=== PATIENT | female | born 1975 | race Caucasian/White ===

== ENCOUNTER 2019-12-11 19:06 | Emergency (ER) | payer BC ==
[2019-12-11] MEDS ORDERED: Acetaminophen/oxyCODONE 325-5 MG Tab PO ONE (19:27)
[2019-12-11] MEDS ORDERED: Ondansetron 4 MG Tab.DIS PO ONE ×2 (19:27→21:42)
--- NOTE | 2019-12-11 19:33 | EDM.PDOC ---
ED HPI GENERAL MEDICAL PROBLEM - General Chief Complaint: Lower Extremity Injury/Pain Stated Complaint: KICKED IN LEFT LEG BY A COW Time Seen by Provider: 12/11/19 19:16 Source of Information: Reports: Patient, Family () History Limitations: Reports: No Limitations - History of Present Illness INITIAL COMMENTS - FREE TEXT/NARRATIVE: Mrs. hinojosa is a very pleasant 44-year-old woman with a past medical history significant for hypertension, suspected asthma, and depression/anxiety, who states that she was kicked in her proximal left leg by a cow around 18:00. She states that she was between the cow and her calf, when the cow got angry and kicked her. The patient was knocked to the ground, but she states that her only injury is to her left leg, and that she is otherwise uninjured. The patient denies recent fever, chills, cough, dyspnea, chest pain, palpitations, nausea, vomiting, constipation, diarrhea, abdominal pain, urinary symptoms, recent weight gain or weight loss, recent bloody bowel movements or black bowel movements, recent joint aches, headaches, or rashes. She last ate around 14:30. The patient's PCP is HUGH Gaines. Her Soda Jerker is Dr. John Boyle. She received an influenza vaccine this season. Left Leg Pain Score (Numeric/FACES): 10 - Related Data Allergies Allergy/AdvReac Type Severity Reaction Status Date / Time No Known Allergies Allergy Verified 12/11/19 19:23 Past Medical History Cardiovascular History: Reports: Hypertension Respiratory History: Reports: Asthma (suspected, not tested) Psychiatric History: Reports: Anxiety, Depression Endocrine/Metabolic History: Reports: Obesity/BMI 30+ - Past Surgical History HEENT Surgical History: Reports: Adenoidectomy, Oral Surgery (wisdom teeth extraction) Female Surgical History: Reports: Cervical Cryotherapy Social & Family History - Tobacco Use Smoking Status *Q: Former Smoker Years of Tobacco use: 15 Packs/Tins Daily: 0.1 Month/Year Tobacco Last Used: Quit 2017 - Caffeine Use Caffeine Use: Reports: Coffee - Alcohol Use Alcohol Use History: Yes Alcohol Use Frequency: Socially - Recreational Drug Use Recreational Drug Use: Yes Drug Use in Last 12 Months: Yes Recreational Drug Type: Reports: Marijuana/Hashish (last vaped THC 12/08/2019) - Living Situation & Occupation Living situation: Reports: , with Spouse, with Family (2 kids) Occupation: Employed (Coffee shop) Review of Systems - Review of Systems Review Of Systems: Comprehensive ROS is negative, except as noted in HPI. ED EXAM, GENERAL - Physical Exam Exam: See Below Exam Limited By: No Limitations General Appearance: Alert, WD/WN, Mild Distress (appears uncomfortable) Extremities: Other (There is erythema associated with an abrasion that extends from the anterior distal left thigh, across the anterior knee, and down to the proximal anterior left leg. There is some swelling to the proximal left leg, and this is where the majority of her tenderness is, however, there is no obvious bony deformity. Excellent left dorsalis pedis and posterior tibialis pulses, and the patient's left foot is as warm as her right. The patient complains of some tingling and numbness to her left foot.) Course - Vital Signs Last Recorded V/S: Last Vital Signs Temp 36.6 C 12/11/19 19:16 Pulse 87 12/11/19 19:16 Resp 16 12/11/19 19:16 BP 153/101 H 12/11/19 19:16 Pulse Ox 98 12/11/19 19:16 - Orders/Labs/Meds Orders: Active Orders 24 hr Category Date Time Status Knee wo Cont Lt [CT] Stat Exams 12/11/19 20:43 Taken Tibia Fibula Lt [CR] Stat Exams 12/11/19 19:22 Taken DME for Discharge [COMM] Stat Oth 12/11/19 22:43 Ordered Meds: Medications Discontinued Medications Generic Name Dose Route Start Last Admin Trade Name Kassidy PRN Reason Stop Dose Admin Hydromorphone HCl 1 mg 12/11/19 21:42 12/11/19 21:46 Dilaudid IM 12/11/19 21:43 1 mg ONETIME ONE Administration Ibuprofen 600 mg 12/11/19 22:51 12/11/19 22:54 Motrin PO 12/11/19 22:52 600 mg ONETIME ONE Administration Ibuprofen Confirm 12/11/19 22:53 Motrin Administered 12/11/19 22:54 Dose 600 mg .ROUTE .STK-MED ONE Ondansetron HCl 4 mg 12/11/19 19:27 12/11/19 19:31 Zofran Odt PO 12/11/19 19:28 4 mg ONETIME ONE Administration Ondansetron HCl 4 mg 12/11/19 21:42 12/11/19 21:46 Zofran Odt PO 12/11/19 21:43 4 mg ONETIME ONE Administration Oxycodone/Acetaminophen 2 tab 12/11/19 19:27 12/11/19 19:31 Percocet 325-5 Mg PO 12/11/19 19:28 2 tab ONETIME ONE Administration - Re-Assessments/Exams Free Text/Narrative Re-Assessment/Exam: 12/11/19 19:28 As above, the patient was kicked in her proximal left leg, and on examination, there is erythema and some swelling extending from the proximal left leg, across the anterior knee, and up onto the distal left thigh. I have ordered x- rays of her left tib-fib and left knee, and I discussed with the radiology tech that the knee views will include some of the distal femur. In the meantime, the patient preferred some oral analgesics as opposed to an injection , therefore I ordered 2 tablets of Percocet and a Zofran ODT. 12/11/19 20:27 4-view radiographs of the left tib/fib appear to demonstrate a comminuted, minimally displaced lateral tibial plateau fracture. No other fracture or dislocation identified. Formal read per the Radiologist pending. The x-ray results were discussed with the patient and her . Unfortunately, we do not have Orthopedic Surgery restaurant front manager today. I will need to discuss the case with an Orthopedic Surgeon in [place]. The patient prefers at [facility]. X-ray images have been pushed to [facility]. 12/11/19 20:44 [facility] contacted at 20:34. Case discussed with Ayesha at [facility] at 20:39. Case then discussed with Dr. Devlin, Orthopedic Surgeon restaurant front manager, at 20:41. He recommended that we obtain a CT of the patient's left knee with 3D reconstruction, and that we push the images to [facility]. We are then to set the patient with a knee immobilizer and crutches, and the patient is to ice and elevate her left knee. She should then follow-up in the clinic between 9 AM and 10 AM tomorrow morning, NPO. 12/11/19 21:43 Notified by Victor Hugo MARIE that the patient could use some additional pain medication and antinausea medicine. I have ordered Dilaudid 1 mg IM, along with an additional 4 mg Zofran ODT. 12/11/19 22:[address] scan of the patient's left knee has been performed, however, the 3D reconstruction has not yet been performed. The patient, however, does not need to wait for those results. We will push the images to [facility] once they have been compiled. In the meantime, we will fit the patient for a knee immobilizer and crutches. I will discharge her home with [facility] prescriptions for Percocet 5/325 #20 and Zofran 4 mg ODT #10. The patient will be instructed to ice and elevate her left knee as much as possible, remain n.p.o. after 23:00 MST, then show up in Dr. Devlin's clinic between 9 AM and 10 PM WORKERS COMPENSATION ADJUSTER tomorrow. 12/11/19 23:31 CT of the left lower extremity without contrast as read by [facility] as: 1. Schatzker type 6 tibial plateau fracture as detailed above. 2. The longitudinal split component in the lateral tibial plateau demonstrates about 8 mm of articular gap, and there is about 4 mm depression of the medial fragment of the lateral plateau. The CT images will be pushed to [facility] now. Departure - Departure Time of Disposition: 22:48 Disposition: Home, Self-Care 01 Condition: Good Clinical Impression: Closed fracture of left tibial plateau - Discharge Information *PRESCRIPTION DRUG MONITORING PROGRAM REVIEWED*: Not Applicable *COPY OF PRESCRIPTION DRUG MONITORING REPORT IN PATIENT LUIS: Not Applicable Instructions: Tibial Fracture, Adult, [id number] Referrals: Celi Pagan PA-C [Primary Care Provider] - John Boyle MD [Physician] - Maxime Devlin MD [Consulting Physician] - Forms: ED Department Discharge Additional Instructions: You were seen in the emergency room for left leg pain after being kicked in the knee by a cow. Work-up in the ER included x-rays of your left leg, followed by a CT scan of your left knee. The x-rays and CT scan confirmed that you have a tibial plateau fracture. You have been placed into a knee immobilizer, which we recommend that you remain in overnight. Use crutches whenever ambulating. We recommend that you ice and elevate your left knee as much as possible overnight. We recommend that you take [id number] ibuprofen, 3 tablets (600 mg) every 8 hours, with food, [id number]. In addition to ibuprofen, you may take 1 to 2 tablets of Percocet up to every 6 hours, as needed for pain not relieved by ibuprofen. Percocet may cause constipation, so consider taking a stool softener. You may dissolve 1 tablet of the anti-nausea medicine Zofran on your tongue up to every 8 hours, as needed for nausea/vomiting. You are not to eat or drink anything after 11:00 [place] time tonight/midnight Central time. You are to show up at the office of the Orthopedic Surgeon Dr. Maxime Devlin, at the [facility], [address] [place] [address], between 9 AM and 10 AM tomorrow morning, 12/12/2019. If any other problems, please do not hesitate to return to the ER. Sepsis Event Note - Evaluation Sepsis Screening Result: No Definite Risk - Focused Exam Vital Signs: Vital Signs Temp Pulse Resp BP Pulse Ox 12/11/19 19:16 36.6 C 87 16 153/101 H 98 Date Exam was Performed: 12/11/19 Time Exam was Performed: 23:31 - My Orders Last 24 Hours: My Active Orders 12/11/19 19:22 Tibia Fibula Lt [CR] Stat 12/11/19 20:43 Knee wo Cont Lt [CT] Stat 12/11/19 22:43 DME for Discharge [COMM] Stat - Assessment/Plan Last 24 Hours: My Active Orders 12/11/19 19:22 Tibia Fibula Lt [CR] Stat 12/11/19 20:43 Knee wo Cont Lt [CT] Stat 12/11/19 22:43 DME for Discharge [COMM] Stat
[2019-12-11] MEDS ORDERED: HYDROmorphone 1 MG/ML Syringe IM ONE (21:42)
[2019-12-11] MEDS ORDERED: Ibuprofen 600 MG Tab PO ONE (22:51)
[2019-12-11] MEDS ORDERED: Ibuprofen 600 MG Tab ONE (22:53)
--- NOTE | 2019-12-12 06:47 | CR ---
Left tibia and fibula: Two views of the left tibia and fibula were obtained. Proximal tibial fracture is identified. Fracture is comminuted and involves the mid and lateral tibial plateau. Displacement is seen on this study up to 1 cm of the lateral tibial plateau fragment. Proximal fibula appears intact. Other portions of the tibia and fibula appear unremarkable. Mild medial joint space narrowing is seen. Impression: 1. Comminuted proximal tibial fracture with displacement up to 1 cm of the lateral tibial plateau fragment. 2. Degenerative medial joint space narrowing. 3. No additional bony abnormality is seen. Diagnostic code #3 This report was dictated in [place] Standard Time
--- NOTE | 2019-12-12 07:31 | CT ---
CT left knee Technique: Multiple axial sections through the left knee were obtained. Reconstructed coronal and sagittal images were reviewed. Findings: Comminuted proximal tibial fracture is seen. Fracture causes displacement of the articular margin of the lateral tibial plateau by 1.0 cm. Lesser displaced fracture within the mid tibial plateau. Oblique transverse fracture lines are noted through the metaphysis. Distal femur is intact. Patella is intact. Fibular head is intact. Diffuse soft tissue swelling is seen. Joint effusion is seen. Impression: 1. Comminuted intra-articular tibial plateau fracture. Lateral articular margin displaced up to 1.0 cm. 2. Soft tissue swelling and joint effusion. Diagnostic code #3 This report was dictated in [place] Standard Time I agree with preliminary report from [facility], finalized on 12/12/19, 12:20 AM Central Time [facility]
== END 2019-12-11 23:15 | disposition home or self-care (01) ==
LOC: JD.ED 19:06
DX: S82.252A Displaced comminuted fracture of shaft of left tibia, initial encounter for closed fracture (principal); S82.142A Displaced bicondylar fracture of left tibia, initial encounter for closed fracture; I10 Essential (primary) hypertension; J45.909 Unspecified asthma, uncomplicated; E66.9 Obesity, unspecified; Z87.891 Personal history of nicotine dependence; Z68.39 Body mass index [BMI] 39.0-39.9, adult; W55.22XA Struck by cow, initial encounter
CPT/HCPCS: 73590; 73700; 96372; 99284; A9270; J1170; 99283

== ENCOUNTER 2020-01-09 20:31 | Emergency (ER) | payer BC ==
--- NOTE | 2020-01-09 21:51 | EDM.PDOC ---
ED HPI GENERAL MEDICAL PROBLEM - General Chief Complaint: Upper Extremity Injury/Pain Stated Complaint: WRIST INJURY Time Seen by Provider: 01/09/20 20:56 Source of Information: Reports: Patient History Limitations: Reports: No Limitations - History of Present Illness INITIAL COMMENTS - FREE TEXT/NARRATIVE: Patient is a 44-year-old female who presents with pain and swelling to her right wrist. She states she was trying to get in the house and she fell backwards. When she reached back to try to catch her so she hit her wrist on their camper. She recently had surgery for a tibial plateau fracture so she had Percocets at home. She took 1 of these which she states did help her pain. She has no previous injuries to this extremity. She has full feeling and movement of her fingers. Right Wrist Pain Score (Numeric/FACES): 9 - Related Data Allergies Allergy/AdvReac Type Severity Reaction Status Date / Time diphenhydramine Allergy Swelling Verified 01/09/20 20:52 [From Benadryl] Home Meds: Home Meds DULoxetine HCl [Cymbalta] 30 mg PO DAILY 01/09/20 [History] Lisinopril [Zestril] 10 mg PO DAILY 01/09/20 [History] metFORMIN [Glucophage XR] 500 mg PO BID 01/09/20 [History] oxyCODONE HCl/Acetaminophen [Percocet 5-325 mg Tablet] 1 each PO Q6H PRN [History] Past Medical History Cardiovascular History: Reports: Hypertension Respiratory History: Reports: Asthma Psychiatric History: Reports: Anxiety, Depression Endocrine/Metabolic History: Reports: Diabetes, Type II, Obesity/BMI 30+ - Past Surgical History HEENT Surgical History: Reports: Adenoidectomy, Oral Surgery Female Surgical History: Reports: Cervical Cryotherapy Musculoskeletal Surgical History: Reports: ORIF Social & Family History - Tobacco Use Smoking Status *Q: Never Smoker - Caffeine Use Caffeine Use: Reports: Coffee - Recreational Drug Use Recreational Drug Use: No - Living Situation & Occupation Living situation: Reports: , with Spouse, with Family (2 kids) Occupation: Employed (Coffee shop) Review of Systems - Review of Systems Review Of Systems: Comprehensive ROS is negative, except as noted in HPI. ED EXAM, GENERAL - Physical Exam Exam: See Below Exam Limited By: No Limitations General Appearance: Alert, WD/WN, No Apparent Distress Respiratory/Chest: No Respiratory Distress, Lungs Clear, Normal Breath Sounds, No Accessory Muscle Use, Chest Non-Tender Cardiovascular: Normal Peripheral Pulses, Regular Rate, Rhythm, No Edema, No Gallop, No JVD, No Murmur, No Rub Extremities: Other (Generalized swelling to the right wrist. There is an area of increased swelling/deformity over the distal, dorsal radius. CMS is intact distal to the injury.) Neurological: Alert, Oriented, CN II-XII Intact, Normal Cognition, Normal Gait, Normal Reflexes, No Motor/Sensory Deficits Psychiatric: Normal Affect, Normal Mood Course - Vital Signs Last Recorded V/S: Last Vital Signs Temp 97.3 F 01/09/20 20:50 Pulse 97 01/09/20 20:50 Resp 16 01/09/20 20:50 BP 145/102 H 01/09/20 20:50 Pulse Ox 95 01/09/20 20:50 - Orders/Labs/Meds Orders: Active Orders 24 hr Category Date Time Status Wrist Comp Min 3V Rt [CR] Stat Exams 01/09/20 20:56 Taken - Re-Assessments/Exams Free Text/Narrative Re-Assessment/Exam: 01/09/20 21:48 X-ray shows a nondisplaced fracture of the distal radius. A fiberglass short arm splint was applied. Patient has a follow-up appointment tomorrow with Dr. Jeong for her tibial plateau fracture. She will discuss this injury with him then. Discharge instructions as documented. Departure - Departure Time of Disposition: 21:49 Disposition: Home, Self-Care 01 Condition: Fair Clinical Impression: Fracture of radius Qualifiers: Encounter type: initial encounter Radius location: distal Fracture type: closed Fracture morphology: unspecified fracture morphology Laterality: right Qualified Code(s): S52.501A - Unspecified fracture of the lower end of right radius, initial encounter for closed fracture - Discharge Information *PRESCRIPTION DRUG MONITORING PROGRAM REVIEWED*: No *COPY OF PRESCRIPTION DRUG MONITORING REPORT IN PATIENT LUIS: No Instructions: Wrist Fracture Treated With Immobilization, [id number] Referrals: Celi Pagan PA-C [Primary Care Provider] - Manolo Jeong MD [Physician] - Additional Instructions: You were seen in the emergency department today for pain and swelling to your right wrist after hitting it while falling today. X-ray shows there is a nondisplaced fracture of the distal radial head. A splint has been applied to the extremity. Recommend that you ice and elevate as much as possible. You may use Tylenol as needed for pain. Recommend that you follow-up with Dr. Jeong in approximately 1 week. You may discuss the injury with him at your appointment tomorrow as well. Return to the ER as needed. Sepsis Event Note - Evaluation Sepsis Screening Result: No Definite Risk - Focused Exam Vital Signs: Vital Signs Temp Pulse Resp BP Pulse Ox 01/09/20 20:50 97.3 F 97 16 145/102 H 95 Date Exam was Performed: 01/09/20 Time Exam was Performed: 21:45 - My Orders Last 24 Hours: My Active Orders 01/09/20 20:56 Wrist Comp Min 3V Rt [CR] Stat - Assessment/Plan Last 24 Hours: My Active Orders 01/09/20 20:56 Wrist Comp Min 3V Rt [CR] Stat
--- NOTE | 2020-01-10 07:29 | CR ---
Right wrist: 4 views the right wrist were obtained. Comparison: No prior wrist study. Nondisplaced fracture is identified within the distal right wrist involving mostly the metaphysis at the base of the radial styloid process. Articular extension is noted. Diffuse soft tissue swelling is noted. Distal ulna appears intact. Impression: 1. Distal radial fracture as noted above. 2. Soft tissue swelling. Diagnostic code #3 Study was dictated in [facility]T
== END 2020-01-09 22:00 | disposition home or self-care (01) ==
LOC: JD.ED 20:31
DX: S52.501A Unspecified fracture of the lower end of right radius, initial encounter for closed fracture (principal); E11.9 Type 2 diabetes mellitus without complications; F41.9 Anxiety disorder, unspecified; J45.909 Unspecified asthma, uncomplicated; F32.9 Major depressive disorder, single episode, unspecified; Z79.899 Other long term (current) drug therapy; Z88.8 Allergy status to other drugs, medicaments and biological substances; E66.9 Obesity, unspecified; Z79.84 Long term (current) use of oral hypoglycemic drugs; Z68.39 Body mass index [BMI] 39.0-39.9, adult; W18.30XA Fall on same level, unspecified, initial encounter
CPT/HCPCS: 29125; 73110-26-RT; 73110-RT; 99283; 99283-25

== ENCOUNTER 2021-02-19 19:27 | Emergency (ER) | payer BC ==
--- NOTE | 2021-02-19 20:10 | EDM.PDOC ---
ED HPI GENERAL MEDICAL PROBLEM - General Chief Complaint: Allergic Reaction Stated Complaint: ALLERGIC REACTION/HIVES Time Seen by Provider: 02/19/21 19:34 Source of Information: Reports: Patient, Family (Daughter) History Limitations: Reports: No Limitations - History of Present Illness INITIAL COMMENTS - FREE TEXT/NARRATIVE: Mrs. Connell is a pleasant 45-year-old woman who now presents to the ED due to a concern that she is having an allergic reaction. She states that she received a sunburn to the back of her neck, her anterior neck and upper chest, and the entirety of both of her upper extremities, including the shoulders, this past Wednesday and Wednesday, 02/15/2021 and 02/16/2021. She has been applying aloe vera. The sunburned areas then became pruritic around 9:00 this morning, then, around 15:30 to 16:00 this afternoon, she developed a rash to the sunburned areas, where in the sunburned areas appeared to be more erythematous than they had been before. There is no rash outside of the areas where she already has a sunburn, and she has no pruritus other than to the areas of the rash, such as to intertriginous areas. She denies having any other symptoms, such as lip swelling, oropharyngeal swelling, difficulty breathing, wheezing, gastritis, or diarrhea. The patient states that she took some Benadryl and Tylenol, which did not help with her symptoms. The patient states that she had similar symptoms around 1999, after eating some almonds. She states that she subsequently underwent allergy testing, which showed that she is allergic to dust mites, but not to nuts. Here in the ED, the patient is initially found to be slightly tachycardic at 102 bpm, otherwise, she is hemodynamically stable, afebrile, saturating 96% on room air. She does not appear to be in any acute distress. Other than her sunburn, the patient denies having a recent fever, chills, sore throat, ear pain, nasal or sinus congestion, cough, dyspnea, chest pain, palpitations, nausea, vomiting, constipation, diarrhea, abdominal pain, urinary symptoms, recent weight gain or weight loss, recent bloody bowel movements or black bowel movements, recent joint aches, or headaches. The patient's PCP is HUGH Gaines. Her Training And Development Specialist is Dr. John Boyle. - Related Data Allergies Allergy/AdvReac Type Severity Reaction Status Date / Time diphenhydramine Allergy Swelling Verified 02/19/21 19:42 [From Benadryl] Home Meds: Home Meds DULoxetine HCl [Cymbalta] 30 mg PO DAILY 01/09/20 [History] lisinopriL [Zestril] 10 mg PO DAILY 01/09/20 [History] metFORMIN [Glucophage XR] 500 mg PO BID 01/09/20 [History] Past Medical History Cardiovascular History: Reports: Hypertension Respiratory History: Reports: Asthma (suspected, not PFT-tested) Psychiatric History: Reports: Anxiety, Depression Endocrine/Metabolic History: Reports: Diabetes, Type II, Obesity/BMI 30+ - Past Surgical History HEENT Surgical History: Reports: Adenoidectomy, Oral Surgery (dental extractions) Female Surgical History: Reports: Cervical Cryotherapy Musculoskeletal Surgical History: Reports: ORIF Social & Family History - Tobacco Use Tobacco Use Status *Q: Former Tobacco User Years of Tobacco use: 15 Packs/Tins Daily: 1 Month/Year Tobacco Last Used: Quit 2017 - Caffeine Use Caffeine Use: Reports: Coffee - Alcohol Use Alcohol Use History: Yes Alcohol Use Frequency: Socially - Recreational Drug Use Recreational Drug Use: Yes Drug Use in Last 12 Months: Yes Recreational Drug Type: Reports: Marijuana/Hashish (vapes THC) - Living Situation & Occupation Living situation: Reports: , with Spouse, with Family (2 kids) Occupation: Unemployed ED ROS GENERAL - Review of Systems Review Of Systems: Comprehensive ROS is negative, except as noted in HPI. ED EXAM, SKIN/RASH Exam: See Below Exam Limited By: No Limitations General Appearance: Alert, WD/WN, No Apparent Distress Eye Exam: Bilateral Eye: EOMI, Normal Inspection Ears: Normal External Exam, Hearing Grossly Normal Nose: Normal Inspection Throat/Mouth: Normal Inspection, Normal Lips (no swelling), Normal Teeth, Normal Gums, Normal Oropharynx (no uvular edema/swelling), Normal Voice, No Airway Compromise Head: Atraumatic, Normocephalic Neck: Normal Inspection, Supple, Non-Tender, Full Range of Motion. No: Lymphadenopathy (L), Lymphadenopathy (R) Respiratory/Chest: No Respiratory Distress, Lungs Clear, Normal Breath Sounds, No Accessory Muscle Use. No: Decreased Breath Sounds, Crackles, Rhonchi, Wheezing, Stridor, Prolonged Expiration Cardiovascular: Normal Peripheral Pulses, Regular Rate, Rhythm, No Gallop, No JVD, No Murmur, No Rub Peripheral Pulses: 3+: Radial (L), Radial (R) GI/Abdominal: Normal Bowel Sounds, Soft, Non-Tender, No Organomegaly, No Distention, No Abnormal Bruit, No Mass Back Exam: Normal Inspection, Full Range of Motion, NT Extremities: Normal Inspection, Normal Range of Motion, Normal Capillary Refill Neurological: Alert, Oriented, Normal Cognition, No Motor/Sensory Deficits Psychiatric: Normal Affect Skin: Warm, Dry, Intact, Normal Color, Rash (Erythematous, non-raised, limited only to sun-exposed areas) Course - Vital Signs Last Recorded V/S: Last Vital Signs Temp 36.8 C 02/19/21 19:35 Pulse 102 H 02/19/21 19:35 Resp 16 02/19/21 19:35 BP 132/82 02/19/21 19:35 Pulse Ox 96 02/19/21 19:35 - Re-Assessments/Exams Free Text/Narrative Re-Assessment/Exam: 02/19/21 20:03 As above, the patient received a sunburn this past Wednesday and Wednesday, then developed pruritus in the areas of the sunburn around 9:00 this morning, followed by increased erythema to the sunburn areas around 15:30 to 16:00 this afternoon. She is only pruritic in the area of her sunburn, not in intertriginous areas, on her palms, or soles. Additionally, her rash is barely erythematous, not raised or consistent with urticaria. Additionally, she has no signs of angioedema or gastrointestinal upset. I explained to the patient that her constellation of symptoms is not consistent with an allergic reaction, which may explain why Benadryl did not help. Going forward, I recommended that she apply cool compresses and aloe to her sunburn, and take ibuprofen as needed for discomfort. Unfortunately, there is no way to un-burn the skin - it will have to heal in time. Departure - Departure Time of Disposition: 20:06 Disposition: Home, Self-Care 01 Condition: Good Clinical Impression: Sunburn - Discharge Information *PRESCRIPTION DRUG MONITORING PROGRAM REVIEWED*: Not Applicable *COPY OF PRESCRIPTION DRUG MONITORING REPORT IN PATIENT LUIS: Not Applicable Instructions: Sunburn, Adult, [id number] Referrals: Latasha,Celi L, PA-C [Primary Care Provider] - John Boyle MD [Physician] - Forms: ED Department Discharge Additional Instructions: You were seen in the emergency room over concern of a possible allergic reaction. Based on your history and physical examination, your itchiness and rash are due to a sunburn, not an allergic reaction. We recommend that you apply cool compresses to uncomfortable areas, as well as aloe vera. Ibuprofen should also help with your discomfort. If any other problems, please do not hesitate to return to the ER. Sepsis Event Note (ED) - Evaluation Sepsis Screening Result: No Definite Risk - Focused Exam Vital Signs: Vital Signs Temp Pulse Resp BP Pulse Ox 02/19/21 19:35 36.8 C 102 H 16 132/82 96
== END 2021-02-19 20:12 | disposition home or self-care (01) ==
LOC: JD.ED 19:27
DX: L55.9 Sunburn, unspecified (principal); I10 Essential (primary) hypertension; E11.9 Type 2 diabetes mellitus without complications; E66.9 Obesity, unspecified; Z88.8 Allergy status to other drugs, medicaments and biological substances; Z87.891 Personal history of nicotine dependence; Z68.39 Body mass index [BMI] 39.0-39.9, adult; Z79.84 Long term (current) use of oral hypoglycemic drugs; Z79.899 Other long term (current) drug therapy
CPT/HCPCS: 99282

== ENCOUNTER 2021-07-11 14:23 | Emergency (ER) | payer BC ==
[2021-07-11] MEDS ORDERED: Ketorolac 15 MG/ML SDV IVPUSH ONE (16:19)
--- NOTE | 2021-07-11 16:26 | EDM.PDOC ---
ED HPI GENERAL MEDICAL PROBLEM - General Chief Complaint: Cardiovascular Problem Stated Complaint: HIGH BP Time Seen by Provider: 07/11/21 16:00 Source of Information: Reports: Patient History Limitations: Reports: No Limitations - History of Present Illness INITIAL COMMENTS - FREE TEXT/NARRATIVE: Patient is a 46-year-old female presenting to the emergency room with a chief complaint of right-sided neck pain. Patient reports neck pain has been present for several days. Patient reports initially starting with the right ear pain however the pain is significantly progressed. Patient reports seeing a chiropractor for an adjustment. States she has had 2 adjustments which have not really alleviated symptoms. Patient reports associated symptoms of dizziness, right ear fullness and elevated blood pressure. Patient went to the chiropractor today for an additional adjustment however patient had blood pressure taken and then was sent to the ER as blood pressure was extremely high. Patient denies any blurry vision, nausea, vomiting, slurred speech, headache. Pain is made worse with any sort of movements of the neck. Patient reports sometimes having numbness in her right hand. Patient has no numbness currently. Headache Pain Score (Numeric/FACES): 9 - Related Data Allergies Allergy/AdvReac Type Severity Reaction Status Date / Time diphenhydramine Allergy Swelling Verified 07/11/21 15:49 [From Benadryl] Home Meds: Home Meds DULoxetine HCl [Cymbalta] 30 mg PO DAILY 01/09/20 [History] lisinopriL [Zestril] 10 mg PO DAILY 01/09/20 [History] metFORMIN [Glucophage XR] 500 mg PO BID 01/09/20 [History] Cyclobenzaprine [Flexeril] 10 mg PO BID #20 tab 07/11/21 [Rx] Past Medical History Cardiovascular History: Reports: Hypertension Respiratory History: Reports: Asthma Psychiatric History: Reports: Anxiety, Depression Endocrine/Metabolic History: Reports: Diabetes, Type II, Obesity/BMI 30+ - Infectious Disease History Infectious Disease History: Reports: Chicken Pox, Novel Coronavirus - Past Surgical History HEENT Surgical History: Reports: Adenoidectomy, Oral Surgery Female Surgical History: Reports: Cervical Cryotherapy Musculoskeletal Surgical History: Reports: ORIF Social & Family History - Tobacco Use Tobacco Use Status *Q: Never Tobacco User Second Hand Smoke Exposure: No - Caffeine Use Caffeine Use: Reports: Coffee - Recreational Drug Use Recreational Drug Use: No - Living Situation & Occupation Living situation: Reports: , with Spouse, with Family (2 kids) Occupation: Unemployed ED ROS GENERAL - Review of Systems Review Of Systems: See Below Free Text/Narrative/Comment: In addition to that documented in the HPI above, the additional ROS was obtai shirley: Constitutional: Denies fevers or chills Eyes: Denies vision changes ENMT: Denies sore throat CV: Denies chest pain Resp: Denies SOB GI: Denies vomiting or diarrhea : Denies painful urination MSK: Denies recent trauma Skin: Denies new rashes Neuro: Per HPI Endocrine: Denies unexpected weight loss Heme: Denies bleeding disorders ED EXAM, GENERAL - Physical Exam Exam: See Below Free Text/Narrative:: I have reviewed the triage vital signs Const: Well nourished, well developed, appears stated age Eyes: Pupils Equal and reactive to light bilaterally, no conjunctival injection HENT: No signs of trauma or swelling, Neck supple without meningismus CV: Regular Rate Rhythm, Warm, well-perfused extremities RESP: Unlabored respiratory effort GI: soft, non-tender, non-distended, no masses MSK: No gross deformities appreciated Skin: Warm, dry. No rashes Neuro: Alert, stunt man II-XII grossly intact. Sensation and motor function of extremities grossly intact. Psych: Appropriate mood and affect. Course - Vital Signs Last Recorded V/S: Last Vital Signs Temp 36.8 C 07/11/21 15:45 Pulse 84 07/11/21 19:00 Resp 16 07/11/21 19:00 BP 194/105 H 07/11/21 19:00 Pulse Ox 98 07/11/21 19:00 - Orders/Labs/Meds Labs: Laboratory Tests 07/11/21 07/11/21 07/11/21 Range/Units 16:40 16:40 16:40 WBC 11.35 H (3.98-10.04) K/mm3 RBC 5.54 H (3.98-5.22) M/mm3 Hgb 16.2 H (11.2-15.7) gm/dl Hct 47.9 H (34.1-44.9) % MCV 86.5 (79.4-94.8) fl MCH 29.2 (25.6-32.2) pg MCHC 33.8 (32.2-35.5) g/dl RDW Std Deviation 41.4 (36.4-46.3) fL Plt Count 368 (182-369) K/mm3 MPV 9.0 L (9.4-12.3) fl Neut % (Auto) 58.8 (34.0-71.1) % Lymph % (Auto) 27.9 (19.3-51.7) % [place] % (Auto) 8.0 (4.7-12.5) % Eos % (Auto) 4.6 (0.7-5.8) Baso % (Auto) 0.4 (0.1-1.2) % Neut # (Auto) 6.67 H (1.56-6.13) K/mm3 Lymph # (Auto) 3.17 (1.18-3.74) K/mm3 [place] # (Auto) 0.91 H (0.24-0.36) K/mm3 Eos # (Auto) 0.52 H (0.04-0.36) K/mm3 Baso # (Auto) 0.05 (0.01-0.08) K/mm3 PT 9.8 (9.7-12.0) SECONDS INR < 0.93 Sodium 137 (136-145) mEq/L Potassium 3.6 (3.5-5.1) mEq/L Chloride 99 (98-107) mEq/L Carbon Dioxide 28 (21-32) mEq/L Anion Gap 13.6 (5-15) BUN 16 (7-18) mg/dL Creatinine 0.9 (0.55-1.02) mg/dL Est Cr Clr Drug Dosing 77.57 mL/min Estimated GFR (MDRD) > 60 (>60) mL/min BUN/Creatinine Ratio 17.8 (14-18) Glucose 103 H (70-99) mg/dL Calcium 9.6 (8.5-10.1) mg/dL Total Bilirubin 0.7 (0.2-1.0) mg/dL AST 17 (15-37) U/L ALT 40 (14-59) U/L Alkaline Phosphatase 68 (46-116) U/L Total Protein 7.8 (6.4-8.2) g/dl Albumin 3.9 (3.4-5.0) g/dl Globulin 3.9 gm/dL Albumin/Globulin Ratio 1.0 (1-2) Meds: Medications Discontinued Medications Generic Name Dose Route Start Last Admin Trade Name Kassidy PRN Reason Stop Dose Admin Iopamidol 100 ml 07/11/21 17:47 07/11/21 18:17 Iopamidol 755 Mg/Ml 100 Ml Bottle IVPUSH 07/11/21 17:48 100 ml ONETIME ONE Administration Ketorolac Tromethamine 15 mg 07/11/21 16:19 07/11/21 16:45 Ketorolac 15 Mg/Ml Sdv IVPUSH 07/11/21 16:20 15 mg ONETIME ONE Administration Morphine Sulfate 4 mg 07/11/21 18:30 07/11/21 19:34 Morphine 4 Mg/Ml Vial IVPUSH 07/11/21 18:31 Not Given ONETIME ONE Morphine Sulfate Confirm 07/11/21 18:34 07/11/21 19:34 Morphine 4 Mg/Ml Syringe Administered 07/11/21 18:35 Not Given Dose 4 mg .ROUTE .STK-MED ONE Morphine Sulfate 4 mg 07/11/21 18:37 07/11/21 18:38 Morphine 4 Mg/Ml Syringe IVPUSH 07/11/21 18:38 4 mg ONETIME STA Administration Departure - Departure Time of Disposition: 18:56 Disposition: Home, Self-Care 01 Clinical Impression: Neck pain Prescriptions: Cyclobenzaprine [Flexeril] 10 mg PO BID #20 tab Instructions: Hypertension, Adult, [id number] Referrals: Celi Pagan PA-C [Primary Care Provider] - Forms: ED Department Discharge Sepsis Event Note (ED) - Evaluation Sepsis Screening Result: No Definite Risk - Assessment/Plan Assessment:: Patient is 46-year-old female presenting to the emergency room. She complains of right-sided neck pain. Patient had no neurologic deficits. Clinical exam was largely unremarkable. Differential diagnosis considered for this patient include cervical strain, vertebral artery dissection, meningitis/encephalitis. Labs performed as well as CT angiogram. These work-up was unremarkable. No clear etiology of patient's neck pain identified however it does not appear to be emergent at this time. Patient did feel better after the administration of morphine and Toradol in the emergency room. At this point, patient will be discharged with outpatient follow-up. All questions were addressed and answered. Patient agrees with plan of care.
[2021-07-11] MEDS ORDERED: Iopamidol 755 Mg/ML 100 ML Bottle IVPUSH ONE (17:47)
[2021-07-11] MEDS ORDERED: Morphine 4 MG/ML VIAL IVPUSH ONE (18:30)
[2021-07-11] MEDS ORDERED: Morphine 4 MG/ML Syringe ONE (18:34)
[2021-07-11] MEDS ORDERED: Morphine 4 MG/ML Syringe IVPUSH STA (18:37)
--- NOTE | 2021-07-12 07:27 | CT ---
CT angiogram of brain Technique: Multiple axial sections were obtained through the brain. Intravenous contrast was utilized in the arterial phase. Multiple MIP images were then obtained. Comparison: No prior intracranial imaging is available. Findings: Both distal internal carotid arteries are patent. There is patency into the anterior and middle cerebral arteries on both sides. Both vertebral arteries are patent with a dominant left vertebral artery. Patency into the basilar artery as well as into both posterior cerebral arteries is noted. No focal narrowing or occlusion is seen. No discrete aneurysm is appreciated. Impression: 1. No abnormality is identified on CT study of the brain. Diagnostic code #1 I agree with preliminary report from [facility] finalized on 07/11/21, 7:37 PM CDT, code 1
--- NOTE | 2021-07-12 07:29 | CT ---
CT angiogram of neck Technique: Multiple axial sections through the neck were obtained. Intravenous contrast was utilized in the arterial phase. Multiple MIP images were obtained of the neck arteries. Findings: Slightly dominant left vertebral artery over the right vertebral artery is noted which is a normal variant. Vertebral arteries show no narrowing or occlusion. Common iliac arteries show no focal stenosis or occlusion. Carotid bulbs are within normal limits. Internal carotid arteries are normal. Proximal external carotid arteries appear within normal limits. Visualized lung apices are clear. No discrete soft tissue abnormality is seen within the neck. Visualized paranasal sinuses and mastoid sinuses show nothing acute. Impression: 1. Dominant left vertebral artery which is a normal variant. 2. Other portions of the CT angiogram study of the neck appear unremarkable (no narrowing, occlusion or dissection). Diagnostic code #2 I agree with preliminary report from [facility] finalized on 07/11/21, 7:43 PM CDT, code 1
== END 2021-07-11 19:00 | disposition home or self-care (01) ==
LOC: JD.ED 14:23
DX: M54.2 Cervicalgia (principal); I10 Essential (primary) hypertension; J45.909 Unspecified asthma, uncomplicated; E11.9 Type 2 diabetes mellitus without complications; E66.9 Obesity, unspecified; Z68.37 Body mass index [BMI] 37.0-37.9, adult; Z86.16 Personal history of COVID-19; Z88.8 Allergy status to other drugs, medicaments and biological substances; Z79.84 Long term (current) use of oral hypoglycemic drugs; Z79.899 Other long term (current) drug therapy
CPT/HCPCS: 36415; 70496; 70498; 80053; 85025; 85610; 96374; 96375; 99284; J1885; J2270; Q9967

== ENCOUNTER 2023-01-13 19:36 | Emergency (ER) | payer BC ==
[2023-01-13] MEDS ORDERED: HYDROmorphone 1 MG/ML Syringe IM ONE (21:42)
== END 2023-01-13 23:35 | disposition home or self-care (01) ==
LOC: JD.ED 19:36
DX: M25.561 Pain in right knee (principal); I10 Essential (primary) hypertension; J45.909 Unspecified asthma, uncomplicated; E11.9 Type 2 diabetes mellitus without complications; E66.9 Obesity, unspecified; Z68.33 Body mass index [BMI] 33.0-33.9, adult; Z88.8 Allergy status to other drugs, medicaments and biological substances; Z86.16 Personal history of COVID-19; Z79.84 Long term (current) use of oral hypoglycemic drugs; Z79.899 Other long term (current) drug therapy
CPT/HCPCS: 36415; 80053; 85025; 85610; 85730; 93926; 93971; 96372; 99284; J1170

== ENCOUNTER 2025-07-21 22:15 | Emergency (ER) | payer BC ==
[2025-07-21] MEDS ORDERED: Sodium Chloride 0.9% 10 ML Syringe FLUSH PRN (22:55)
[2025-07-21 23:04] LABS: APPEARANCE,URINE CLOUDY (Clear); GLUCOSE,URINE TRACE (Negative); OCCULT BLOOD,URINE 3+ (Negative)
[2025-07-21 23:14] LABS: SQUAMOUS EPITHELIAL CELLS,UR 0-5 /hpf (0-5)
[2025-07-21] MEDS: Ketorolac 15 MG/ML SDV IVPUSH ONE (23:18)
[2025-07-21 23:19] LABS: BASOPHILS ABSOLUTE AUTO 0.1 K/mm3 (0.0-0.2); BASOPHILS PERCENT AUTO 0.4 % (0.0-1.0); EOSINOPHILS ABSOLUTE AUTO 0.1 K/mm3 (0.0-0.4); EOSINOPHILS PERCENT AUTO 0.8 % (0.0-6.0); IMMATURE GRAN ABSOLUTE AUTO 0.04 K/mm3 (0.00-0.05); IMMATURE GRAN PERCENT AUTO 0.3 % (0.0-0.4); LYMPHOCYTES ABSOLUTE AUTO 2.2 K/mm3 (1.0-4.8); LYMPHOCYTES PERCENT AUTO 15.4 % (24.0-44.0); MEAN PLATELET VOLUME 8.8 fl (9.4-12.3); MONOCYTES ABSOLUTE AUTO 1.0 K/mm3 (0.0-0.8); MONOCYTES PERCENT AUTO 7.2 % (0.0-8.0); NEUTROPHILS ABSOLUTE AUTO 10.8 K/mm3 (1.8-7.7); NEUTROPHILS PERCENT AUTO 75.9 % (41.0-71.0); NRBC ABSOLUTE 0.00 (0.00-0.02); NRBC PERCENT 0.0 % (0.0-0.2); PLATELET COUNT,PLT 320 K/mm3 (150-400); RED BLOOD CELL COUNT 5.07 M/mm3 (4.10-5.30); WHITE BLOOD CELL COUNT,WBC 14.26 K/mm3 (3.9-11.3)
[2025-07-21 23:38] LABS: A/G RATIO 1.0 (1-2); ALANINE AMINOTRANSFERASE,ALT 41.0 U/L (14-59); ASPARTATE AMNIOTRANSFERASE,AST 20.0 U/L (15-37); BILIRUBIN TOTAL 1.5 mg/dL (0.2-1.0); BLOOD UREA NITROGEN,BUN 14.0 mg/dL (7-18); CARBON DIOXIDE,CO2 28.0 mEq/L (21-32); CHLORIDE,CL 100.0 mEq/L (98-107); CREATININE 0.8 mg/dL (0.55-1.02); EST CRCL DRUG DOSING (CG) 83.63 mL/min; ESTIMATED GFR 91.0 mL/min (>60); GLUCOSE RANDOM 122.0 mg/dL (70-99); POTASSIUM,K 3.2 mEq/L (3.5-5.1); PROTEIN TOTAL,TP 7.5 g/dl (6.4-8.2); SODIUM,NA 139.0 mEq/L (136-145)
[2025-07-21] MEDS: Sodium Chloride 0.9% 10 ML Syringe FLUSH PRN (23:38)
[2025-07-21] MEDS: Iopamidol 612 MG/ML 100 ML Bottle IVPUSH ONE (23:38)
[2025-07-22] MEDS: cefTRIAXone 2 GM in Water For Injection, Sterile 20 ML IVPUSH ONE (00:48)
== END 2025-07-22 01:13 | disposition home or self-care (01) ==
LOC: JD.ED 22:15
DX: N12 Tubulo-interstitial nephritis, not specified as acute or chronic (principal); I10 Essential (primary) hypertension; E11.9 Type 2 diabetes mellitus without complications; E66.9 Obesity, unspecified; Z68.36 Body mass index [BMI] 36.0-36.9, adult; Z86.16 Personal history of COVID-19; Z88.8 Allergy status to other drugs, medicaments and biological substances; Z79.899 Other long term (current) drug therapy; Z79.84 Long term (current) use of oral hypoglycemic drugs
CPT/HCPCS: 36415; 74177; 80053; 81001; 83690; 84703; 85025; 87086; 87088; 87186; 96361; 96374; 96375; 99284; A4216; J0696; J1885; J7030; Q9967